=== PATIENT | male | born 1995 | race Caucasian/White ===

== ENCOUNTER 2020-02-09 19:06 | Emergency (ER) | payer OTHER ==
[2020-02-09 19:11] VITALS: BP 142/75; PULSE 68; RESP 20; TEMP 98.3
--- NOTE | 2020-02-09 19:14 | ED ---
Lower Extremity Injury HPI - General Chief Complaint: Extremity Injury, Lower Stated Complaint: R Ankle Injury Time Seen by Provider: 02/09/20 19:13 Source: patient, family, RN notes reviewed, old records reviewed Mode of arrival: ambulatory Limitations: no limitations - History of Present Illness Initial Comments: This is a 24-year-old male DF for right ankle pain. Patient right ankle twisting all playing basketball about 5 days ago. Pain swelling of his been persistent he is able to weight but is having significant swelling, color change bruising. Patient denies trauma or injury. He does have prior history of ankle sprain on his other ankle MD Complaint: ankle injury (R) -: days(s) Injury: Ankle: Right Type of Injury: inversion Place: home Severity: moderate Severity scale (1-10): 7 Improves With: nothing Worsens With: nothing Context: running Associated Symptoms: swelling, able to partially bear weight - Related Data Allergies Allergy/AdvReac Type Severity Reaction Status Date / Time No Known Allergies Allergy Verified 02/09/20 19:12 Review of Systems ROS Statement: Those systems with pertinent positive or pertinent negative responses have been documented in the HPI. ROS Other: All systems not noted in ROS Statement are negative. Past Medical History Past Medical History: No Reported History History of Any Multi-Drug Resistant Organisms: None Reported Past Surgical History: No Surgical Hx Reported Past Psychological History: No Psychological Hx Reported Smoking Status: Current every day smoker Past Alcohol Use History: Occasional Past Drug Use History: None Reported General Exam Limitations: no limitations General appearance: alert, in no apparent distress Head exam: Present: atraumatic, normocephalic, normal inspection Eye exam: Present: normal appearance, PERRL, EOMI. Absent: scleral icterus, conjunctival injection, periorbital swelling ENT exam: Present: normal exam, mucous membranes moist Neck exam: Present: normal inspection. Absent: tenderness, meningismus, l ymphadenopathy Respiratory exam: Present: normal lung sounds bilaterally. Absent: respiratory distress, wheezes, rales, rhonchi, stridor Cardiovascular Exam: Present: regular rate, normal rhythm, normal heart sounds. Absent: systolic murmur, diastolic murmur, rubs, gallop, clicks GI/Abdominal exam: Present: soft, normal bowel sounds. Absent: distended, tenderness, guarding, rebound, rigid Extremities exam: Present: normal inspection, full ROM, normal capillary refill. Absent: tenderness, pedal edema, joint swelling, calf tenderness Back exam: Present: normal inspection Neurological exam: Present: alert, oriented X3, CN II-XII intact Psychiatric exam: Present: normal affect, normal mood Skin exam: Present: warm, dry, intact, normal color. Absent: rash Course Vital Signs 02/09/20 19:09 Temperature 98.3 F Pulse Rate 68 Respiratory 20 Rate Blood Pressure 142/75 O2 Sat by Pulse 100 Oximetry - Reevaluation(s) Reevaluation #1: 02/09/20 19:52 Medical records reviewed Reevaluation #2: 02/09/20 19:52 spoke patient length regarding findings, questions answered Medical Decision Making - Medical Decision Making 24 male DF for evaluation, patient has normal x-ray of right ankle can be discharged home - Radiology Data Radiology results: report reviewed (X-ray ankle is negative for significant dramatic injury), image reviewed Disposition Clinical Impression: Right ankle sprain Disposition: HOME SELF-CARE Condition: Good Instructions (If sedation given, give patient instructions): Ankle Sprain (ED) Is patient prescribed a controlled substance at d/c from ED?: No Referrals: None,Stated [Primary Care Provider] - 1-2 days
--- NOTE | 2020-02-09 19:36 | XR ---
EXAMINATION TYPE: XR ankle complete RT DATE OF EXAM: 02/09/2020 COMPARISON: NONE HISTORY: Pain TECHNIQUE: 3 views FINDINGS: Ankle mortise is anatomic. There is soft tissue swelling over the lateral malleolus. Joint spaces are normal. IMPRESSION: Soft tissue swelling. No fracture seen.
== END 2020-02-09 19:54 | disposition home or self-care (01) ==
LOC: EC 19:06
DX: S93.401A Sprain of unspecified ligament of right ankle, initial encounter (principal); F17.200 Nicotine dependence, unspecified, uncomplicated; X50.1XXA Overexertion from prolonged static or awkward postures, initial encounter; Y93.67 Activity, basketball
CPT/HCPCS: 99284